=== PATIENT | female | born 1950 | race African-American/Black ===

== ENCOUNTER 2016-11-20 18:33 | Inpatient (IN) | payer OTHER, MEDICARE, MEDICAID ==
[~2016-11-20] VITALS: Ht 149.9 cm; Wt 57.2 kg
[2016-11-20] MEDS ORDERED: ATOR-2 GT (18:49)
[2016-11-20] MEDS ORDERED: METF500T4 GT (18:49)
[2016-11-20] MEDS ORDERED: ATEN-42 GT (18:49)
[2016-11-20] MEDS ORDERED: LOSA100T14 GT (18:49)
[2016-11-20] MEDS ORDERED: PROT40 PO (18:49)
[2016-11-20] MEDS ORDERED: ASPI-1159 GT (18:49)
[2016-11-20] MEDS ORDERED: MULT1TAB GT (18:49)
[2016-11-20] MEDS ORDERED: LACT1TAB10 GT (18:49)
[2016-11-20 19:10] LABS: BASOPHILS % 0.8 % (0.0-2.0); EOSINOPHILS % 4.9 % (0.0-5.0); HEMATOCRIT. 29.2 % (36.0-48.0); HEMOGLOBIN. 9.7 g/dL (12.0-16.0); LYMPHOCYTES % 19.4 % (20.0-50.0); MEAN CORPUSCULAR HEMOGLOBIN 26.8 pg (28.0-32.0); MEAN CORPUSCULAR VOLUME 80.3 fL (81.0-99.0); MEAN PLATELET VOLUME 8.1 fl (7.4-10.4); MONOCYTES % 9.5 % (2.0-8.0); NEUTROPHILS % 65.4 % (40.0-76.0); PLATELET 382 x1000/uL (130-400); RED BLOOD CELL COUNT 3.63 mill/uL (4.2-5.4); RED CELL DISTRIBUTION WIDTH 14.4 % (11.6-14.6)
[2016-11-20 19:25] LABS: CARBON DIOXIDE 29 mEq/L (21-32); CHLORIDE 95 mEq/L (98-107); CREATINE KINASE 46 IU/L (26-192); ETHANOL BLOOD < 10 mg/dL; TROPONIN I < 0.02 ng/mL (0.00-0.04)
[2016-11-20] MEDS ORDERED: MORPHINE SULFATE 4 MG/ML CPJ (NOT FOR IM USE) IV ONE (22:15)
[2016-11-20] MEDS ORDERED: ONDANSETRON HCL 4MG/2ML VIAL IV ONE (22:15)
[2016-11-21 04:06] VITALS: BP 166/66
[2016-11-21] MEDS ORDERED: LANTUSUD SUBCUT ×2 (04:28)
[2016-11-21 05:34] VITALS: BP 143/98
[2016-11-21] MEDS: INSULIN LISPRO 100 UNITS/ML SUBCUT SCH ×3 (06:15→18:15)
[2016-11-21] MEDS ORDERED: DEXTROSE 50% WATER 50ML SYRINGE IV PRN (06:15)
[2016-11-21] MEDS: SODIUM CHLORIDE 0.9% 1,000 ML IV SCH (06:31)
[2016-11-21] MEDS: BLOOD SUGAR DIAGNOSTIC STRIP TEST SCH ×3 (07:00→18:24)
[2016-11-21 08:00] VITALS: BP 139/57
[2016-11-21] MEDS ORDERED: LEVOFLOXACIN 500MG PREMIX 100 ML IV SCH (08:00)
[2016-11-21] MEDS ORDERED: MULTIVIT WITH IRON MINERALS GT SCH (09:00)
[2016-11-21] MEDS ORDERED: [UNRECOGNIZED DRUG - OTHER] SUBCUT SCH ×2 (09:00→21:00)
[2016-11-21] MEDS ORDERED: INSULIN GLARGINE HUM REC ANLOG SUBCUT SCH ×2 (09:00→21:00)
[2016-11-21] MEDS: LOSARTAN POTASSIUM 100 MG TABLET GT SCH (09:57)
[2016-11-21] MEDS: MULTIVITAMINS,THER W-MINERALS TABLET GT SCH (09:57)
[2016-11-21] MEDS: PANTOPRAZOLE 40MG DR TABLET PO SCH (09:57)
[2016-11-21] MEDS: ATENOLOL 25MG TABLET GT SCH (09:57)
[2016-11-21] MEDS: METFORMIN HCL 500MG TABLET GT SCH ×2 (09:57→18:24)
[2016-11-21] MEDS: INSULIN DETEMIR UD 100 UNITS/ML SYR SUBCUT SCH ×2 (10:07→21:23)
[2016-11-21 11:55] LABS: CLARITY URINE TURBID (CLEAR); COLOR URINE YELLOW (YELLOW); GLUCOSE URINE NEGATIVE (NEGATIVE); KETONES URINE NEGATIVE (NEGATIVE); LEUKOCYTE ESTERASE URINE 3+ (NEGATIVE); NITRITE URINE NEGATIVE (NEGATIVE); OCCULT BLOOD URINE 1+ (NEGATIVE); PH URINE 8.5 (4.5-8.0); PROTEIN URINE 2+ (NEGATIVE); SPECIFIC GRAVITY URINE 1.014 (1.005-1.030); UROBILINOGEN URINE 0.2 E.U./dL (0.2-1.0)
[2016-11-21 12:00] VITALS: BP 130/47
[2016-11-21 12:04] LABS: *AMPHETAMINES SCREEN URINE NEGATIVE (NEGATIVE); *BARBITURATES SCREEN URINE NEGATIVE (NEGATIVE); *BENZODIAZEPINES SCREEN URINE NEGATIVE (NEGATIVE); *COCAINE SCREEN URINE NEGATIVE (NEGATIVE); CANNABINOID URINE SCREEN NEGATIVE (NEGATIVE); METHADONE URINE SCREEN NEGATIVE (NEGATIVE); OPIATES URINE SCREEN PRESUMTIVE POSITIVE (NEGATIVE); PHENCYCLIDINE URINE SCREEN NEGATIVE (NEGATIVE)
[2016-11-21 16:00] VITALS: BP 137/59
[2016-11-21] MEDS ORDERED: PNEUMOCOCCAL 23-VAL P-SAC VAC 0.5 ML IM ONE (19:45)
[2016-11-21] MEDS ORDERED: INFLUENZA VIRUS VACCINE 0.5ML SYR IM ONE (19:45)
[2016-11-21 20:00] VITALS: BP 140/59
[2016-11-21] MEDS: ATORVASTATIN CALCIUM 40MG TABLET GT SCH (22:36)
[2016-11-22] VITALS: BP 146/53
[2016-11-22] MEDS: INSULIN LISPRO 100 UNITS/ML SUBCUT SCH ×4 (00:15→18:15)
[2016-11-22] MEDS: BLOOD SUGAR DIAGNOSTIC STRIP TEST SCH ×4 (00:49→18:27)
[2016-11-22] MEDS: SODIUM CHLORIDE 0.9% 1,000 ML IV SCH ×2 (00:50→21:17)
[2016-11-22 04:00] VITALS: BP 142/63
[2016-11-22] MEDS ORDERED: INFLUENZA VIRUS VACCINE 0.5ML SYR IM ONE (04:00)
[2016-11-22] MEDS ORDERED: PNEUMOCOCCAL 23-VAL P-SAC VAC 0.5 ML IM ONE (04:00)
[2016-11-22 08:00] VITALS: BP 165/67
[2016-11-22] MEDS: PANTOPRAZOLE 40MG DR TABLET PO SCH (09:45)
[2016-11-22] MEDS: METFORMIN HCL 500MG TABLET GT SCH ×2 (09:45→17:40)
[2016-11-22] MEDS: MULTIVITAMINS,THER W-MINERALS TABLET GT SCH (09:45)
[2016-11-22] MEDS: ATENOLOL 25MG TABLET GT SCH (09:45)
[2016-11-22] MEDS: LOSARTAN POTASSIUM 100 MG TABLET GT SCH (09:46)
[2016-11-22] MEDS: LEVOFLOXACIN 250MG PREMIX 50 ML IV SCH (09:46)
[2016-11-22] MEDS: INSULIN DETEMIR UD 100 UNITS/ML SYR SUBCUT SCH ×2 (11:42→21:12)
[2016-11-22 12:04] VITALS: BP 173/55
[2016-11-22 16:00] VITALS: BP 167/64
[2016-11-22 20:00] VITALS: BP 178/62
[2016-11-22] MEDS: ATORVASTATIN CALCIUM 40MG TABLET GT SCH (21:17)
[2016-11-22] MEDS: METOPROLOL TARTRATE 50MG TABLET PO SCH (22:20)
[2016-11-22] MEDS: CLONIDINE 0.2MG TABLET PO PRN (22:20)
[2016-11-23] VITALS: BP 104/75
[2016-11-23] MEDS: INSULIN LISPRO 100 UNITS/ML SUBCUT SCH ×4 (00:15→23:28)
[2016-11-23] MEDS: BLOOD SUGAR DIAGNOSTIC STRIP TEST SCH ×4 (00:24→23:28)
[2016-11-23 04:00] VITALS: BP 122/43
[2016-11-23 08:00] VITALS: BP 132/60
[2016-11-23] MEDS: METOPROLOL TARTRATE 50MG TABLET PO SCH ×2 (10:03→20:39)
[2016-11-23] MEDS: MULTIVITAMINS,THER W-MINERALS TABLET GT SCH (10:03)
[2016-11-23] MEDS: LEVOFLOXACIN 250MG PREMIX 50 ML IV SCH (10:03)
[2016-11-23] MEDS: FAMOTIDINE 20MG TABLET PO SCH (10:04)
[2016-11-23] MEDS: METFORMIN HCL 500MG TABLET GT SCH ×2 (10:04→17:16)
[2016-11-23] MEDS: LOSARTAN POTASSIUM 100 MG TABLET GT SCH (10:04)
[2016-11-23] MEDS: INSULIN DETEMIR UD 100 UNITS/ML SYR SUBCUT SCH ×2 (11:28→22:21)
[2016-11-23 12:00] VITALS: BP 129/48
[2016-11-23 16:00] VITALS: BP 135/52
[2016-11-23 20:37] VITALS: BP 168/62
[2016-11-23] MEDS: ATORVASTATIN CALCIUM 40MG TABLET GT SCH (20:38)
[2016-11-24 01:44] VITALS: BP 169/47
[2016-11-24 04:00] VITALS: BP 187/52
[2016-11-24] MEDS: BLOOD SUGAR DIAGNOSTIC STRIP TEST SCH ×3 (05:49→17:02)
[2016-11-24] MEDS: INSULIN LISPRO 100 UNITS/ML SUBCUT SCH ×3 (05:49→17:02)
[2016-11-24 08:00] VITALS: BP 160/55
[2016-11-24] MEDS: METOPROLOL TARTRATE 50MG TABLET PO SCH ×2 (09:11→22:01)
[2016-11-24] MEDS: LOSARTAN POTASSIUM 100 MG TABLET GT SCH (09:12)
[2016-11-24] MEDS: MULTIVITAMINS,THER W-MINERALS TABLET GT SCH (09:12)
[2016-11-24] MEDS: METFORMIN HCL 500MG TABLET GT SCH ×2 (09:12→17:18)
[2016-11-24] MEDS: LEVOFLOXACIN 250MG PREMIX 50 ML IV SCH (09:13)
[2016-11-24] MEDS: FAMOTIDINE 20MG TABLET PO SCH (09:13)
[2016-11-24] MEDS: INSULIN DETEMIR UD 100 UNITS/ML SYR SUBCUT SCH ×2 (10:04→22:06)
[2016-11-24] MEDS: SODIUM CHLORIDE 0.9% 1,000 ML IV SCH ×3 (10:36→17:19)
[2016-11-24 12:00] VITALS: BP 130/79
[2016-11-24 16:00] VITALS: BP 152/65
[2016-11-24 20:01] VITALS: BP 177/71
[2016-11-24] MEDS: CLONIDINE 0.2MG TABLET PO PRN (22:01)
[2016-11-24] MEDS: ATORVASTATIN CALCIUM 40MG TABLET GT SCH (22:01)
[2016-11-25 00:01] VITALS: BP 122/54
[2016-11-25] MEDS: INSULIN LISPRO 100 UNITS/ML SUBCUT SCH (00:15)
[2016-11-25] MEDS: BLOOD SUGAR DIAGNOSTIC STRIP TEST SCH ×3 (00:15→17:01)
[2016-11-25 08:00] VITALS: BP 145/55
[2016-11-25] MEDS: INSULIN DETEMIR UD 100 UNITS/ML SYR SUBCUT SCH (10:30)
[2016-11-25] MEDS ORDERED: LEVOFLOXACIN 250MG TABLET PO SCH (11:00)
[2016-11-25 12:00] VITALS: BP 162/53
[2016-11-25 16:00] VITALS: BP 169/51
[2016-11-25] MEDS: METFORMIN HCL 500MG TABLET GT SCH (17:00)
[2016-11-25 18:15] VITALS: BP 169/51
== END 2016-11-25 19:45 | DRG 604 ==
LOC: ER 18:44 → EDBEDREQ 18:58 → 7WST 11-21 00:35 → OBSVTOIN 11-21 00:35 → INTOOBSV 11-21 00:35 → EDBEDREQTM 11-21 00:36 → EDBEDREQ 11-21 00:36 → ENRESERV 11-21 01:06
PROVIDERS: ADMIT Internal Medicine; ATTEND Internal Medicine
DX: S00.83XA Contusion of other part of head, initial encounter (principal); G93.40 Encephalopathy, unspecified; N39.0 Urinary tract infection, site not specified; W19.XXXA Unspecified fall, initial encounter; E11.9 Type 2 diabetes mellitus without complications; E78.00 Pure hypercholesterolemia, unspecified; X58.XXXA Exposure to other specified factors, initial encounter; F09 Unspecified mental disorder due to known physiological condition; I10 Essential (primary) hypertension; I73.9 Peripheral vascular disease, unspecified; Z82.49 Family history of ischemic heart disease and other diseases of the circulatory system; Z86.73 Personal history of transient ischemic attack (TIA), and cerebral infarction without residual deficits; Z95.1 Presence of aortocoronary bypass graft; Y93.89 Activity, other specified; Z79.82 Long term (current) use of aspirin; Z79.899 Other long term (current) drug therapy; Y92.89 Other specified places as the place of occurrence of the external cause; Z88.1 Allergy status to other antibiotic agents; Z88.8 Allergy status to other drugs, medicaments and biological substances; Z79.84 Long term (current) use of oral hypoglycemic drugs; Y99.8 Other external cause status
CPT/HCPCS: 36415; 70450; 71010; 72125; 80053; 80305; 81001; 82550; 82962; 83880; 84484; 85025; 85610; 87077; 87086; 87186; 90686; 90732; 93005; A6261; G0482; J1815; J1956; J2270; J2405; J7030; J7042; A4315

== ENCOUNTER 2017-08-16 05:56 | Inpatient (IN) | payer MEDICARE, MEDICAID ==
[~2017-08-16] VITALS: Ht 165.1 cm; Wt 71.7 kg
[2017-08-16] VITALS (24 sets, daily range): BP systolic 48–144; BP diastolic 15–86
[~2017-08-16 05:56] MED LIST: ASPI-1159 GT; ATEN-42 GT; ATOR-2 GT; LANTUSUD SUBCUT; LOSA100T14 GT; METF500T6 GT; MULT1TAB GT; PROT40 PO
[2017-08-16] MEDS ORDERED: NITROGLYCERIN 0.4MG TABLET SL SL ONE (06:06)
[2017-08-16] MEDS ORDERED: SODIUM CHLORIDE 0.9% 1000ML BAG (SEPSIS BOLUS) IV ONE (06:30)
[2017-08-16] MEDS ORDERED: DOPAMINE 400MG PREMIX 250 ML IV ONE ×3 (06:30→09:30)
[2017-08-16] MEDS ORDERED: LEVOFLOXACIN 750MG PREMIX 150 ML IV ONE (06:30)
[2017-08-16] MEDS ORDERED: VANCOMYCIN 1 G PREMIX 200 ML IV ONE (06:30)
[2017-08-16] MEDS ORDERED: PROPOFOL 10MG/ML 100ML 100 ML IV SCH (06:30)
[2017-08-16] MEDS ORDERED: METRONIDAZOLE 500 MG PREMIX 100 ML IV ONE (06:30)
[2017-08-16] MEDS ORDERED: INSULIN REGULAR (HUMULIN R) UD 100 UNITS/ML SYR SUBCUT ONE (06:30)
[2017-08-16] MEDS ORDERED: ACETAMINOPHEN 650MG SUPP PR ONE (06:45)
[2017-08-16 07:16] LABS: BASOPHILS % 0.7 % (0.0-2.0); EOSINOPHILS % 0.4 % (0.0-5.0); HEMATOCRIT. 29.9 % (36.0-48.0); HEMOGLOBIN. 8.7 g/dL (12.0-16.0); LYMPHOCYTES % 11.5 % (20.0-50.0); MEAN CORPUSCULAR HEMOGLOBIN 26.6 pg (28.0-32.0); MEAN CORPUSCULAR VOLUME 91.3 fL (81.0-99.0); MEAN PLATELET VOLUME 11.9 fl (7.4-10.4); MONOCYTES % 5.1 % (2.0-8.0); NEUTROPHILS % 82.3 % (40.0-76.0); PLATELET 275 x1000/uL (130-400); RED BLOOD CELL COUNT 3.28 mill/uL (4.2-5.4); RED CELL DISTRIBUTION WIDTH 17.6 % (11.6-14.6)
[2017-08-16 07:24] LABS: INR 1.1; PARTIAL THROMBOPLASTIN TIME 20.1 sec (23.4-31.0); PROTHROMBIN TIME 11.4 sec (9.4-11.6)
[2017-08-16 07:33] LABS: CHLORIDE 105 mEq/L (98-107)
[2017-08-16 07:53] LABS: BG BASE EXCESS -17.5 mmol/L (-2.0-2.0); BG CARBOXYHEMOGLOBIN 0.3 % (0.5-1.5); BG DEOXYHEMOGLOBIN 0.5 % (0.0-5.0); BG FRACTION INSPIRED OXYGEN 100; BG HCO3 ACT 10.3 mmol/L (22.0-26.0); BG OXYGEN SATURATION 99.5 % (92.0-98.5); BG OXYHEMOGLOBIN 99.2 % (94.0-97.0); BG PCO2 31.3 mmHg (35.0-45.0); BG PH 7.134 (7.350-7.450); BG PO2 563.7 mmHg (75.0-100.0); BG SAMPLE SITE RIGHT BRACHIAL; BG TIDAL VOLUME(mL) 500 mL; BG TOTAL HEMOGLOBIN 9.6 g/dL (12.0-18.0); BG VENT MODE VENT - A/C; BG VENT RATE 14 set
[2017-08-16] MEDS ORDERED: INSULIN REGULAR (DRIP) 100 UNITS in SODIUM CHLORIDE 0.9% 100 ML IV ONE ×2 (07:54→11:30)
[2017-08-16] MEDS ORDERED: INSULIN REGULAR (HUMULIN R) 300UNITS/3ML IV ONE (08:00)
[2017-08-16] MEDS ORDERED: CALCIUM CHLORIDE 1,000 MG in DEXT 5% WATER 90 ML IV ONE (08:00)
[2017-08-16] MEDS ORDERED: SODIUM BICARBONATE 8.4% 1 MEQ/ML 50ML SYR IV ONE (08:00)
[2017-08-16] MEDS ORDERED: ALBUTEROL (0.083%) 2.5MG/3ML NEB HHN ONE (08:00)
[2017-08-16] MEDS ORDERED: SODIUM POLYSTYRENE SULFONATE 15 G/60 ML BOT GT ONE (08:00)
[2017-08-16 08:21] LABS: CLARITY URINE TURBID (CLEAR); COLOR URINE DARK YELLOW (YELLOW); KETONES URINE TRACE (NEGATIVE); LEUKOCYTE ESTERASE URINE 2+ (NEGATIVE); NITRITE URINE NEGATIVE (NEGATIVE); OCCULT BLOOD URINE NEGATIVE (NEGATIVE); PROTEIN URINE 2+ (NEGATIVE); SPECIFIC GRAVITY URINE 1.022 (1.005-1.030); UROBILINOGEN URINE 0.2 E.U./dL (0.2-1.0)
[2017-08-16 08:26] LABS: PHOSPHORUS 4.6 mg/dL (2.5-4.9)
[2017-08-16] MEDS ORDERED: LIDOCAINE HCL 1% 20ML VIAL (Pyxis) INJ ONE (08:53)
[2017-08-16] MEDS ORDERED: DOPAMINE HCL 400 MG in DEXT 5% WATER 245 ML IV ONE (10:15)
[2017-08-16 10:36] LABS: PHOSPHORUS 4.8 mg/dL (2.5-4.9)
[2017-08-16] MEDS ORDERED: NOREPINEPHRINE 16 MG in DEXT 5% WATER 246 ML IV ONE (11:30)
[2017-08-16] MEDS ORDERED: INSULIN REGULAR (DRIP) 100 UNITS in SODIUM CHLORIDE 0.9% 100 ML IV SCH ×2 (11:36→12:00)
[2017-08-16] MEDS ORDERED: DEXTROSE 50% WATER 50ML SYRINGE IV PRN ×2 (11:45)
[2017-08-16] MEDS ORDERED: NOREPINEPHRINE 16MG in DEXT 5% WATER 250ML (QUADRUPLE CONC) IV PRN (11:45)
[2017-08-16] MEDS ORDERED: ACETAMINOPHEN 325MG TABLET PO PRN (12:00)
[2017-08-16] MEDS: BLOOD SUGAR DIAGNOSTIC STRIP TEST SCH ×3 (12:00→15:46)
[2017-08-16] MEDS ORDERED: SODIUM BICARBONATE 8.4% 1 MEQ/ML 50ML SYR IV SCH ×2 (12:00→13:15)
[2017-08-16] MEDS ORDERED: PANTOPRAZOLE SODIUM 40 MG/VIAL IV SCH (12:00)
[2017-08-16] MEDS ORDERED: IPRATROPIUM/ALBUTEROL 0.5-3(2.5)MG/3ML NEB INH PRN (12:00)
[2017-08-16] MEDS ORDERED: ONDANSETRON HCL 4MG/2ML VIAL IV PRN (12:00)
[2017-08-16] MEDS ORDERED: VANCOMYCIN 1 G PREMIX 200 ML IV SCH (12:00)
[2017-08-16] MEDS ORDERED: LEVOFLOXACIN 500MG PREMIX 100 ML IV SCH (12:00)
[2017-08-16] MEDS ORDERED: ENOXAPARIN 40MG/0.4ML SYR SUBCUT SCH (12:00)
[2017-08-16] MEDS ORDERED: DOPAMINE 800MG PREMIX 250 ML IV ONE (12:15)
[2017-08-16] MEDS ORDERED: DOPAMINE HCL 400 MG in DEXT 5% WATER 250 ML IV PRN (12:15)
[2017-08-16] MEDS ORDERED: DOPAMINE 800MG PREMIX 250 ML IV PRN (12:45)
[2017-08-16 12:59] LABS: BG BASE EXCESS -20.2 mmol/L (-2.0-2.0); BG CARBOXYHEMOGLOBIN 0.3 % (0.5-1.5); BG DEOXYHEMOGLOBIN 3.1 % (0.0-5.0); BG FRACTION INSPIRED OXYGEN 50; BG HCO3 ACT 9.5 mmol/L (22.0-26.0); BG METHEMOGLOBIN 0.4 % (0.0-1.5); BG OXYGEN SATURATION 96.9 % (92.0-98.5); BG OXYHEMOGLOBIN 96.2 % (94.0-97.0); BG PCO2 37.1 mmHg (35.0-45.0); BG PH 7.028 (7.350-7.450); BG PO2 127.7 mmHg (75.0-100.0); BG SAMPLE SITE RIGHT BRACHIAL; BG TIDAL VOLUME(mL) 500 mL; BG TOTAL HEMOGLOBIN 10.2 g/dL (12.0-18.0); BG VENT MODE VENT - A/C; BG VENT RATE 16 set
[2017-08-16] MEDS ORDERED: ENOXAPARIN 30MG/0.3ML SYR SUBCUT SCH (13:00)
[2017-08-16 13:08] LABS: PHOSPHORUS 6.5 mg/dL (2.5-4.9)
[2017-08-16] MEDS ORDERED: SODIUM BICARBONATE 150 MEQ in SODIUM CHLORIDE 0.45% 850 ML IV SCH (13:30)
[2017-08-16] MEDS ORDERED: INSULIN LISPRO 100 UNITS/ML SUBCUT SCH (13:45)
[2017-08-16] MEDS ORDERED: SUCCINYLCHOLINE CHLORIDE 200MG/10ML VIAL IV ONE (13:52)
[2017-08-16] MEDS ORDERED: ETOMIDATE 2MG/ML 10ML VIAL IV ONE (13:52)
[2017-08-16] MEDS ORDERED: VANCOMYCIN 1500MG in DEXTROSE 5% WATER 250ML IV SCH (14:00)
[2017-08-16] MEDS ORDERED: PHENYLEPHRINE 40 MG in DEXT 5% WATER 246 ML IV PRN (14:00)
[2017-08-16] MEDS ORDERED: EPINEPHRINE 0.1MG/ML (1:10,000) 10ML SYR ONE (14:41)
[2017-08-16] MEDS ORDERED: SODIUM BICARBONATE 7.5% 0.9 MEQ/ML 50ML SYR IV ONE (14:59)
== END 2017-08-16 17:55 | disposition expired | DRG 871 ==
LOC: ER 05:56 → MICUNO 08:28 → EDBEDREQTM 08:32 → EDBEDREQ 08:32 → ENRESERV 09:48 → MICUNO 11:15
PROVIDERS: ADMIT Internal Medicine; ATTEND Internal Medicine
PROC: 5A12012 Performance of Cardiac Output, Single, Manual (ICD-10-PCS; principal; 2017-08-16)
PROC: 02H633Z Insertion of Infusion Device into Right Atrium, Percutaneous Approach (ICD-10-PCS; 2017-08-16)
PROC: B244ZZZ Ultrasonography of Right Heart (ICD-10-PCS; 2017-08-16)
PROC: 06HM33Z Insertion of Infusion Device into Right Femoral Vein, Percutaneous Approach (ICD-10-PCS; 2017-08-16)
PROC: 0BH17EZ Insertion of Endotracheal Airway into Trachea, Via Natural or Artificial Opening (ICD-10-PCS; 2017-08-16)
PROC: 5A1935Z Respiratory Ventilation, Less than 24 Consecutive Hours (ICD-10-PCS; 2017-08-16)
PROC: 5A1D70Z Performance of Urinary Filtration, Intermittent, Less than 6 Hours Per Day (ICD-10-PCS; 2017-08-16)
DX: A41.9 Sepsis, unspecified organism (principal); J96.00 Acute respiratory failure, unspecified whether with hypoxia or hypercapnia; N18.6 End stage renal disease; R65.21 Severe sepsis with septic shock; E11.10 Type 2 diabetes mellitus with ketoacidosis without coma; I21.4 Non-ST elevation (NSTEMI) myocardial infarction; I12.0 Hypertensive chronic kidney disease with stage 5 chronic kidney disease or end stage renal disease; E11.22 Type 2 diabetes mellitus with diabetic chronic kidney disease; E78.00 Pure hypercholesterolemia, unspecified; I46.9 Cardiac arrest, cause unspecified; D64.9 Anemia, unspecified; E87.5 Hyperkalemia; I25.10 Atherosclerotic heart disease of native coronary artery without angina pectoris; Z86.73 Personal history of transient ischemic attack (TIA), and cerebral infarction without residual deficits; Z95.1 Presence of aortocoronary bypass graft; Z88.1 Allergy status to other antibiotic agents; Z88.8 Allergy status to other drugs, medicaments and biological substances; Z79.4 Long term (current) use of insulin; Z79.84 Long term (current) use of oral hypoglycemic drugs; Z79.82 Long term (current) use of aspirin; Z79.899 Other long term (current) drug therapy
CPT/HCPCS: 36415; 36556; 36600; 70450; 71045; 76937; 80048; 80053; 80076; 81003; 82010; 82375; 82550; 82805; 82962; 83605; 83735; 83880; 84100; 84484; 85025; 85610; 85730; 86850; 86900; 87040; 87077; 87086; 87186; 93005; 96365; 96366; 96368; 96372; 96375; 99291; C1752; C9113; J0330; J1265; J1815; J1956; J2704; J3370; J3490; J7030; J7040; J7050; J7060; J7611; A4315